=== PATIENT | female | born 1975 | race Asian ===

== ENCOUNTER 2018-02-12 05:55 | Emergency (ER) | payer BC ==
[~2018-02-12] VITALS: Ht 162.6 cm; Wt 56.7 kg
[2018-02-12 06:01] VITALS: BP 138/95
--- NOTE | 2018-02-12 06:04 | NUR ---
TO BED # 5 AMBULATORY, REPORT GIVEN TO FARIHA MORRIS.
--- NOTE | 2018-02-12 06:06 | NUR ---
PT TAKEN TO BED 12
--- NOTE | 2018-02-12 06:09 | NUR ---
PT C/O RT AND LEFT FLANK PAIN, 8/10 [place]ARP, SINCE 4 AM THIS MORNING, HX OF KIDNEY STONE AND KIDNEY INFECTION. PATIENT ALERT AND ORIENTED, NO ACUTE DISTRESS NOTED. URINE OBTAINED, WILL CONTINUE TO MONITOR CLOSELY.
--- NOTE | 2018-02-12 06:17 | NUR ---
Dr. Franklin evaluating patient at bedside.
[2018-02-12] MEDS ORDERED: HYDROmorphone 2 MG TAB PO ONE (06:20)
[2018-02-12] MEDS ORDERED: ONDANSETRON 4 MG ODT PO ONE (06:20)
[2018-02-12] MEDS ORDERED: KETOROLAC 30 MG/ML VIAL IM ONE (06:20)
--- NOTE | 2018-02-12 06:39 | NUR ---
PER PT, SHE REFUSED DILUADID REQUESTING TO HOLD IT UNTIL SHE SEES HOW THE TORADOL MAKES HER FEEL.
[2018-02-12 06:49] LABS: BASOPHILS % (AUTO) 0.6 % (0.0-2.0); EOSINOPHILS # (AUTO) 0.1 K/uL (0-0.4); HEMATOCRIT 39.1 % (36-48); HEMOGLOBIN 13.1 g/dL (12.0-16.0); LYMPHOCYTES % (AUTO) 13.4 % (20.5-51.1); MEAN CORPUSCULAR HEMOGLOBIN 29 pg (27-31); MEAN CORPUSCULAR HGB CONC 34 g/dL (33-37); MEAN CORPUSCULAR VOLUME 86.8 fL (80-94); MONOCYTES # (AUTO) 0.6 K/uL (0.8-1.0); MONOCYTES % (AUTO) 8.2 % (1.7-9.3); NEUTROPHILS # (AUTO) 5.8 K/uL (1.8-7.7); NEUTROPHILS % (AUTO) 76.8 % (42.2-75.2); PLATELET COUNT (AUTO) 240 K/uL (140-450); WHITE BLOOD COUNT (AUTO) 7.6 K/uL (4.8-10.8)
--- NOTE | 2018-02-12 06:56 | NUR ---
PT TAKEN TO CT
[2018-02-12 06:58] LABS: ANION GAP 12.4 (8-16); CARBON DIOXIDE 27.1 mmol/L (21-32); CREATININE 0.8 mg/dL (0.6-1.3); POTASSIUM 3.5 mmol/L (3.5-5.1)
--- NOTE | 2018-02-12 07:05 | NUR ---
PT RETURN FROM CT
--- NOTE | 2018-02-12 07:19 | NUR ---
REPORT GIVEN TO ASHVIN MORRIS
--- NOTE | 2018-02-12 07:25 | NUR ---
RECEIVED REPORT FROM PM NURSE, PT AOX4, STILL COMPLAIN PAIN BUT REFUSED TO TAKE DILAUDID. WILL NOTIFY .
[2018-02-12 07:31] LABS: APPEARANCE,URINE CLOUDY (CLEAR); BILIRUBIN,URINE NEGATIVE (NEGATIVE); BLOOD, URINE 3+ (NEGATIVE); COLOR,URINE YELLOW (YELLOW); LEUKOCYTE ESTERASE ,URINE NEGATIVE (NEGATIVE); NITRITE, URINE NEGATIVE (NEGATIVE); UGLUCOSE NEGATIVE (NEGATIVE)
[2018-02-12 08:17] LABS: RBC,URINE 3-10 (FEW) /HPF (0-5); WBC,URINE 0-5 (RARE) /HPF (0-5)
[2018-02-12 08:21] VITALS: BP 130/88
--- NOTE | 2018-02-12 08:22 | NUR ---
Patient discharged with v/s stable. Written and verbal after care instructions given and explained. Patient alert, oriented and verbalized understanding of instructions. Ambulatory with steady gait. All questions addressed prior to discharge. ID band removed. Patient advised to follow up with PMD. Rx of IBUPROFEN,FLOMAX AND NORCO given. Patient educated on indication of medication including possible reaction and side effects. Opportunity to ask questions provided and answered.
[2018-02-12] MEDS ORDERED: TAMSULOSIN 0.4 MG CAP PO SCH (08:30)
== END 2018-02-12 08:22 | disposition home or self-care (01) ==
LOC: MED 05:55
DX: N23 Unspecified renal colic (principal); Z87.442 Personal history of urinary calculi
CPT/HCPCS: 36415; 74176; 80048; 81001; 81025; 85025; 96372; 99285; J1885; S0119